=== PATIENT | female | born 1940 | race Caucasian/White ===

== ENCOUNTER 2017-06-23 17:44 | Inpatient (IN) | payer MEDICARE, MEDICAID ==
[~2017-06-23] VITALS: Ht 162.6 cm; Wt 54.5 kg
[2017-06-23] MEDS ORDERED: normal saline 1000ml 1,000 ML IV ONE (18:12)
[2017-06-23] MEDS ORDERED: normal saline 1000ML IV soln IVB ONE ×2 (18:15→19:20)
[2017-06-23 18:18] LABS: BASOPHILS % (AUTO) 0.5 % (0-1); EOSINOPHILS # (AUTO) 0.3 X10'3 (0-0.9); EOSINOPHILS % (AUTO) 2.6 % (0-6); HEMATOCRIT 33.1 % (35.0-45.0); HEMOGLOBIN 10.8 g/dl (12.0-16.0); LYMPHOCYTES # (AUTO) 2.1 X10'3 (1.1-4.8); LYMPHOCYTES % (AUTO) 21.8 % (21-51); MEAN CORPUSCULAR HEMOGLOBIN 29.9 PG (27.0-31.0); MEAN CORPUSCULAR HGB CONC 32.7 % (33.0-36.5); MEAN CORPUSCULAR VOLUME 91.7 FL (78-98); MEAN PLATELET VOLUME 7.9 FL (7.4-10.4); MONOCYTES # (AUTO) 0.6 X10'3 (0-0.9); MONOCYTES % (AUTO) 5.9 % (2-12); NEUTROPHILS # (AUTO) 6.7 X10'3 (1.8-7.7); NEUTROPHILS % (AUTO) 69.2 % (42-75); PLATELET COUNT 247 X10'3 (140-440); RED BLOOD COUNT 3.61 X10'6 (4.20-5.60); RED CELL DISTRIBUTION WIDTH 17.5 % (11.5-14.5); WHITE BLOOD COUNT 9.6 X10'3 (4.5-11.0)
[2017-06-23 18:30] LABS: PARTIAL THROMBOPLASTIN TIME 30 SECONDS (22-32); PROTHROMBIN TIME 10.6 SECONDS (9.0-12.0)
[2017-06-23 18:41] LABS: ALANINE AMINOTRANSFERASE 14 U/L (12-78); ALBUMIN 3.5 G/DL (3.4-5.0); ALBUMIN/GLOBULIN RATIO 0.9 (1.1-1.5); ALKALINE PHOSPHATASE 89 IU/L (46-116); ASPARTATE AMINO TRANSFERASE 18 U/L (10-37); BILIRUBIN,TOTAL 0.4 MG/DL (0.1-1.0); BLOOD UREA NITROGEN 37 MG/DL (7-18); BUN/CREATININE RATIO 23.3 (6.6-38.0); CALCIUM 7.9 MG/DL (8.5-10.1); CHLORIDE 103 MMOL/L (99-107); CREATINE KINASE 88 U/L (26-192); CREATININE 1.59 MG/DL (0.40-0.90); GLUCOSE 91 MG/DL (70-104); MAGNESIUM 2.1 MG/DL (1.5-2.4); POTASSIUM 5.3 MMOL/L (3.5-5.1); TOTAL CARBON DIOXIDE 25.2 MMOL/L (24-32); TOTAL PROTEIN 7.3 G/DL (6.4-8.2); eGFR 31 ML/MIN
[2017-06-23 18:42] LABS: ANION GAP 8 (8-16); SODIUM 136 MMOL/L (135-145)
[2017-06-23] MEDS ORDERED: HYDR-4070 PO (19:53)
[2017-06-23] MEDS ORDERED: AMLO10TA PO (19:53)
[2017-06-23] MEDS ORDERED: AMIO200T57 PO (19:53)
[2017-06-23] MEDS ORDERED: PANT-47 PO (19:53)
[2017-06-23] MEDS ORDERED: TIOT18CA3 PO (19:53)
[2017-06-23] MEDS ORDERED: ROSU20TA PO (19:53)
[2017-06-23] MEDS ORDERED: BUSP15TA14 PO (19:53)
[2017-06-23] MEDS ORDERED: NITR0.4T SL (19:53)
[2017-06-23] MEDS ORDERED: LEVO50TA PO (19:53)
[2017-06-23] MEDS ORDERED: ASPI81TA52 PO (19:53)
[2017-06-23] MEDS ORDERED: IMI20NS NS (19:53)
[2017-06-23] MEDS ORDERED: ALBU18HF2 INH (19:53)
[2017-06-23] MEDS ORDERED: CARB-87 PO (19:53)
[2017-06-23] MEDS ORDERED: FLUO20CA39 PO (19:53)
[2017-06-23] MEDS ORDERED: BUDE10.2 INH (19:53)
[2017-06-23] MEDS ORDERED: METO50TA17 PO (19:53)
[2017-06-23] MEDS ORDERED: ALBUTEROL SULFATE INH PRN (20:05)
[2017-06-23] MEDS ORDERED: ondansetron/PF 4mg/2ml inj IV PRN (20:05)
[2017-06-23] MEDS ORDERED: acetaminophen 325mg tablet PO PRN (20:05)
[2017-06-23] MEDS ORDERED: albuterol 2.5 MG/3 ML nebule NEB PRN (20:15)
[2017-06-23] MEDS: normal saline 1000ml 1,000 ML IV SCH (20:35)
[2017-06-23] MEDS ORDERED: HYDRALAZINE HCL PO SCH (21:00)
[2017-06-23] MEDS: ipratropium 0.5 MG/2.5ML nebule IH SCH ×2 (21:00→21:55)
[2017-06-23] MEDS: hydrALAZINE 25 MG tablet PO SCH (21:00)
[2017-06-23 22:05] LABS: PHOSPHORUS 4.4 MG/DL (2.3-4.5)
[2017-06-24 00:05] LABS: ALBUMIN 3.2 G/DL (3.4-5.0); ANION GAP 11 (8-16); BLOOD UREA NITROGEN 30 MG/DL (7-18); BUN/CREATININE RATIO 23.6 (6.6-38.0); CALCIUM 7.8 MG/DL (8.5-10.1); CHLORIDE 107 MMOL/L (99-107); CREATININE 1.27 MG/DL (0.40-0.90); GLUCOSE 88 MG/DL (70-104); POTASSIUM 4.4 MMOL/L (3.5-5.1); SODIUM 138 MMOL/L (135-145); TOTAL CARBON DIOXIDE 20.5 MMOL/L (24-32); eGFR 41 ML/MIN
[2017-06-24 01:14] LABS: COLOR,URINE YELLOW (Yellow); GLUCOSE, URINE NEGATIVE (Neg); KETONES,URINE NEGATIVE (Neg); LEUKOCYTE ESTERASE ,URINE MODERATE (Neg); NITRITES, URINE NEGATIVE (Neg); OCCULT BLOOD,URINE NEGATIVE (Neg); PROTEIN,URINE NEGATIVE (Neg); UROBILINOGEN,URINE 0.2 E.U/dL (0.2-1.0)
[2017-06-24 01:15] LABS: CLARITY,URINE SLIGHTLY CLOUDY (Clear); UA COLLECTION TYPE VOIDED
[2017-06-24 01:24] LABS: BACTERIA,URINE FEW /HPF (Neg); MUCUS STRANDS NONE SEEN /LPF (Neg); RBC,URINE NONE SEEN /HPF (0-2); SQUAMOUS EPITHELIAL CELL,UR FEW /LPF (FEW)
[2017-06-24 06:16] LABS: BASOPHILS # (AUTO) 0.1 X10'3 (0-0.2); BASOPHILS % (AUTO) 0.6 % (0-1); EOSINOPHILS # (AUTO) 0.3 X10'3 (0-0.9); EOSINOPHILS % (AUTO) 2.6 % (0-6); HEMATOCRIT 31.1 % (35.0-45.0); HEMOGLOBIN 10.3 g/dl (12.0-16.0); LYMPHOCYTES # (AUTO) 2.1 X10'3 (1.1-4.8); LYMPHOCYTES % (AUTO) 21.7 % (21-51); MEAN CORPUSCULAR HEMOGLOBIN 30.3 PG (27.0-31.0); MEAN CORPUSCULAR HGB CONC 33.1 % (33.0-36.5); MEAN CORPUSCULAR VOLUME 91.5 FL (78-98); MEAN PLATELET VOLUME 8.2 FL (7.4-10.4); MONOCYTES # (AUTO) 0.5 X10'3 (0-0.9); MONOCYTES % (AUTO) 4.9 % (2-12); NEUTROPHILS # (AUTO) 6.8 X10'3 (1.8-7.7); NEUTROPHILS % (AUTO) 70.2 % (42-75); PLATELET COUNT 210 X10'3 (140-440); RED CELL DISTRIBUTION WIDTH 16.8 % (11.5-14.5); WHITE BLOOD COUNT 9.8 X10'3 (4.5-11.0)
[2017-06-24 06:22] LABS: ANION GAP 8 (8-16); BLOOD UREA NITROGEN 25 MG/DL (7-18); BUN/CREATININE RATIO 22.1 (6.6-38.0); CALCIUM 8.3 MG/DL (8.5-10.1); CHLORIDE 110 MMOL/L (99-107); CHOL/HDL RATIO 2.2 (0.00-4.99); CHOLESTEROL 101 MG/DL (0-200); CREATININE 1.13 MG/DL (0.40-0.90); GLUCOSE 89 MG/DL (70-104); HDL CHOLESTEROL 46 MG/DL (35-60); LDL CHOLESTEROL 41 MG/DL (50-100); PHOSPHORUS 3.6 MG/DL (2.3-4.5); POTASSIUM 4.4 MMOL/L (3.5-5.1); SODIUM 142 MMOL/L (135-145); TOTAL CARBON DIOXIDE 24.2 MMOL/L (24-32); TRIGLYCERIDES 56 MG/DL (20-135); eGFR 47 ML/MIN
[2017-06-24] MEDS: levoTHYROXINE 25mcg tablet PO SCH (07:31)
[2017-06-24] MEDS ORDERED: [UNRECOGNIZED DRUG - OTHER] INH SCH (08:00)
[2017-06-24] MEDS ORDERED: non-formulary drug (Rosuvastatin Calcium* (Crestor*) 1 TAB) PO SCH (08:00)
[2017-06-24] MEDS ORDERED: non-formulary drug (Levothyroxine Sodium (Synthroid) 1 TAB) PO SCH (08:00)
[2017-06-24] MEDS ORDERED: BUDESONIDE INH SCH (08:00)
[2017-06-24] MEDS ORDERED: fluticasone/vilanterol 200mcg/25mcg inhaler IH SCH (08:00)
[2017-06-24] MEDS ORDERED: FORMOTEROL FUMARATE INH SCH (08:00)
[2017-06-24] MEDS ORDERED: non-formulary drug (Tiotropium Bromide (Spiriva) 1 CAP) PO SCH (08:00)
[2017-06-24] MEDS: ipratropium 0.5 MG/2.5ML nebule IH SCH ×3 (09:00→21:02)
[2017-06-24] MEDS: atorvastatin 20mg tablet PO SCH (09:01)
[2017-06-24] MEDS: FLUoxetine 20mg capsule PO SCH (09:02)
[2017-06-24] MEDS: aspirin 81mg tablet.DR PO SCH (09:02)
[2017-06-24] MEDS: pantoprazole 40mg Tablet.DR PO SCH (09:02)
[2017-06-24] MEDS: hydrALAZINE 25 MG tablet PO SCH ×3 (09:02→20:56)
[2017-06-24] MEDS ORDERED: GABA-530 PO (12:21)
[2017-06-24] MEDS: normal saline 1000ml 1,000 ML IV SCH (12:29)
[2017-06-24] MEDS: CefTRIAXone/D5W-Rocephin 1gm 50 ML IV SCH (15:56)
[2017-06-24 19:30] VITALS: BP 123/83
[2017-06-24 23:00] VITALS: BP 140/84
[2017-06-25 03:00] VITALS: BP 137/85
[2017-06-25] MEDS: ipratropium 0.5 MG/2.5ML nebule IH SCH (03:00)
[2017-06-25 04:37] LABS: ALBUMIN 3.1 G/DL (3.4-5.0); ANION GAP 9 (8-16); BLOOD UREA NITROGEN 19 MG/DL (7-18); CALCIUM 8.3 MG/DL (8.5-10.1); CHLORIDE 104 MMOL/L (99-107); CREATININE 1.19 MG/DL (0.40-0.90); GLUCOSE 95 MG/DL (70-104); MAGNESIUM 1.7 MG/DL (1.5-2.4); PHOSPHORUS 3.1 MG/DL (2.3-4.5); POTASSIUM 4.4 MMOL/L (3.5-5.1); SODIUM 137 MMOL/L (135-145); TOTAL CARBON DIOXIDE 24.2 MMOL/L (24-32); eGFR 44 ML/MIN
[2017-06-25 06:30] VITALS: BP 134/78
[2017-06-25] MEDS: levoTHYROXINE 25mcg tablet PO SCH (07:00)
[2017-06-25] MEDS: FLUoxetine 20mg capsule PO SCH (08:00)
[2017-06-25] MEDS: CefTRIAXone/D5W-Rocephin 1gm 50 ML IV SCH (08:00)
[2017-06-25] MEDS: normal saline 1000ml 1,000 ML IV SCH (09:35)
[2017-06-25] MEDS: atorvastatin 20mg tablet PO SCH (09:36)
[2017-06-25] MEDS: pantoprazole 40mg Tablet.DR PO SCH (09:36)
[2017-06-25] MEDS: hydrALAZINE 25 MG tablet PO SCH (09:36)
[2017-06-25] MEDS: aspirin 81mg tablet.DR PO SCH (09:36)
[2017-06-25 11:00] VITALS: BP 153/43
[2017-06-25] MEDS ORDERED: DOXY-200 PO (11:09)
[2017-06-25] MEDS ORDERED: lactobacillus rhamnosus 10,000 MMU CELLS/CAPSULE PO SCH (20:00)
== END 2017-06-25 12:45 | disposition home or self-care (01) | DRG 683 ==
LOC: ER 17:45 → ED HOLD 20:01 → PCU 3S 06-24 18:45
PROVIDERS: ADMIT Family Medicine; ATTEND Internal Medicine
DX: N17.9 Acute kidney failure, unspecified (principal); N39.0 Urinary tract infection, site not specified; E87.5 Hyperkalemia; I49.5 Sick sinus syndrome; I71.2 Thoracic aortic aneurysm, without rupture; E86.0 Dehydration; N18.3 Chronic kidney disease, stage 3 (moderate); E03.9 Hypothyroidism, unspecified; J44.9 Chronic obstructive pulmonary disease, unspecified; D64.9 Anemia, unspecified; I25.10 Atherosclerotic heart disease of native coronary artery without angina pectoris; I12.9 Hypertensive chronic kidney disease with stage 1 through stage 4 chronic kidney disease, or unspecified chronic kidney disease; E78.5 Hyperlipidemia, unspecified; F41.9 Anxiety disorder, unspecified; G89.29 Other chronic pain; K21.9 Gastro-esophageal reflux disease without esophagitis; K44.9 Diaphragmatic hernia without obstruction or gangrene; F17.210 Nicotine dependence, cigarettes, uncomplicated; Z90.49 Acquired absence of other specified parts of digestive tract; Z90.710 Acquired absence of both cervix and uterus; Z79.899 Other long term (current) drug therapy; Z88.6 Allergy status to analgesic agent; Z88.8 Allergy status to other drugs, medicaments and biological substances; Z85.118 Personal history of other malignant neoplasm of bronchus and lung; Z80.9 Family history of malignant neoplasm, unspecified; Z82.3 Family history of stroke; Z82.49 Family history of ischemic heart disease and other diseases of the circulatory system
CPT/HCPCS: 36415; 71045; 71046; 71250; 80048; 80053; 80061; 81001; 82550; 83735; 83874; 83880; 84100; 84443; 84484; 85025; 85610; 85730; 87070; 87088; 93005; 94640; 94760; 96360; 96361; 99291; J0696; J7030

== ENCOUNTER → 2017-06-29 | Emergency (ER) | payer MEDICARE, MEDICAID ==
[~2017-06-29] VITALS: Ht 162.6 cm; Wt 55.0 kg
[~2017-06-29] MED LIST: ALBU18HF2 INH; AMIO200T57 PO; AMLO10TA PO; ASPI81TA52 PO; BUDE10.2 INH; BUSP15TA14 PO; CARB-87 PO; DOXY-200 PO; FLUO20CA39 PO; GUAI5SYR5 CORPAK; HYDR-4070 PO; IMI20NS NS; LEVO50TA PO; NITR0.4T SL; PANT-47 PO; ROSU20TA PO; TIOT18CA3 PO; dexamethasone 4mg tablet PO ONE; ipratropium/albuterol 3ml nebule NEB ONE
[2017-06-29 19:50] VITALS: BP 115/81
== END | disposition home or self-care (01) ==
LOC: ER 19:39
DX: J45.901 Unspecified asthma with (acute) exacerbation (principal); I10 Essential (primary) hypertension; J44.9 Chronic obstructive pulmonary disease, unspecified; K21.9 Gastro-esophageal reflux disease without esophagitis; G89.29 Other chronic pain; Z90.49 Acquired absence of other specified parts of digestive tract; Z98.890 Other specified postprocedural states; Z60.2 Problems related to living alone; Z88.5 Allergy status to narcotic agent; Z88.8 Allergy status to other drugs, medicaments and biological substances; Z79.899 Other long term (current) drug therapy
CPT/HCPCS: 71046; 94640; 94760; 99284; J8540

== ENCOUNTER 2017-10-30 14:11 | Outpatient (CLI) | payer MEDICARE, MEDICAID ==
[~2017-10-30] VITALS: Ht 193 cm; Wt 55.3 kg
[~2017-10-30 14:11] MED LIST changes: +AMIO200T40 PO; -AMIO200T57 PO; -DOXY-200 PO; -GUAI5SYR5 CORPAK; -dexamethasone 4mg tablet PO ONE; -ipratropium/albuterol 3ml nebule NEB ONE
[2017-10-30] MEDS ORDERED: albuterol 2.5 MG/3 ML nebule NEB ONE (14:50)
== END 2017-10-30 23:59 | disposition home or self-care (01) ==
LOC: RT 14:11
PROVIDERS: ATTEND Internal Medicine Cardiovascular Disease
DX: J44.9 Chronic obstructive pulmonary disease, unspecified (principal); J90 Pleural effusion, not elsewhere classified; R06.09 Other forms of dyspnea; M41.34 Thoracogenic scoliosis, thoracic region; F17.200 Nicotine dependence, unspecified, uncomplicated; Z79.899 Other long term (current) drug therapy; Z79.82 Long term (current) use of aspirin
CPT/HCPCS: 71046; 85018; 94060; 94640; 94727; 94729; 94760

== ENCOUNTER 2018-08-29 19:19 | Emergency (ER) | payer MEDICARE, MEDICAID ==
[~2018-08-29] VITALS: Ht 162.6 cm; Wt 53.0 kg
[~2018-08-29 19:19] MED LIST changes: -ROSU20TA PO; +ROSU20TA2 PO
--- NOTE | 2018-08-29 20:09 | NUR ---
Bedside swallow evaluation performed at this time. Per daughters at bedside patient has been having difficulty swallowing x1 month that has worsened, patient even coughing at times while eating/drinking to the point of vomiting. Patient showed no signs of choking/coughing, but there is a delay in swallowing each time with applesauce, yogurt, and water. No signs of distress noted, safety measures in place.
--- NOTE | 2018-08-29 20:21 | NUR ---
Patient ambulated to bathroom at this time for urine sample. Patient gait unsteady, unbalanced, 1 person assistance needed. Patient unable to urinate at this time, returned safely to bed, daughters at bedside.
[2018-08-29 21:13] LABS: BASOPHILS # (AUTO) 0.1 X10'3 (0-0.2); BASOPHILS % (AUTO) 1.3 % (0-1); EOSINOPHILS # (AUTO) 0.1 X10'3 (0-0.9); EOSINOPHILS % (AUTO) 1.9 % (0-6); HEMATOCRIT 30.9 % (35.0-45.0); HEMOGLOBIN 10.2 g/dl (12.0-16.0); LYMPHOCYTES # (AUTO) 2.4 X10'3 (1.1-4.8); LYMPHOCYTES % (AUTO) 40.2 % (21-51); MEAN CORPUSCULAR HEMOGLOBIN 29.7 PG (27.0-31.0); MEAN CORPUSCULAR VOLUME 90.2 FL (78-98); MEAN PLATELET VOLUME 8.2 FL (7.4-10.4); MONOCYTES # (AUTO) 0.5 X10'3 (0-0.9); MONOCYTES % (AUTO) 8.8 % (2-12); NEUTROPHILS # (AUTO) 2.8 X10'3 (1.8-7.7); NEUTROPHILS % (AUTO) 47.8 % (42-75); PLATELET COUNT 173 X10'3 (140-440); RED BLOOD COUNT 3.43 X10'6 (4.20-5.60); WHITE BLOOD COUNT 5.9 X10'3 (4.5-11.0)
[2018-08-29 21:17] LABS: CLARITY,URINE CLEAR (Clear); COLOR,URINE YELLOW (Yellow); GLUCOSE, URINE NEGATIVE (Neg); KETONES,URINE NEGATIVE (Neg); LEUKOCYTE ESTERASE ,URINE NEGATIVE (Neg); NITRITES, URINE NEGATIVE (Neg); OCCULT BLOOD,URINE NEGATIVE (Neg); PROTEIN,URINE NEGATIVE (Neg); UROBILINOGEN,URINE 0.2 E.U/dL (0.2-1.0)
[2018-08-29 21:19] LABS: ALANINE AMINOTRANSFERASE 28 U/L (12-78); ALBUMIN 3.1 G/DL (3.4-5.0); ALBUMIN/GLOBULIN RATIO 0.9 (1.1-1.5); ALKALINE PHOSPHATASE 89 IU/L (46-116); ANION GAP 7 (8-16); ASPARTATE AMINO TRANSFERASE 50 U/L (10-37); BILIRUBIN,TOTAL 0.3 MG/DL (0.1-1.0); BLOOD UREA NITROGEN 20 MG/DL (7-18); CALCIUM 8.3 MG/DL (8.5-10.1); CHLORIDE 107 MMOL/L (99-107); CREATININE 1.43 MG/DL (0.40-0.90); GLUCOSE 92 MG/DL (70-104); SODIUM 139 MMOL/L (135-145); TOTAL CARBON DIOXIDE 25.5 MMOL/L (24-32); TOTAL PROTEIN 6.6 G/DL (6.4-8.2); eGFR 35 ML/MIN
[2018-08-29 21:25] LABS: UA COLLECTION TYPE STRAIGHT CATH
[2018-08-29] MEDS ORDERED: NYST1000 PO (21:49)
[2018-08-29 22:07] VITALS: BP 129/73
== END 2018-08-29 22:09 | disposition home or self-care (01) ==
LOC: ER 19:20
DX: R13.10 Dysphagia, unspecified (principal); R41.0 Disorientation, unspecified; I10 Essential (primary) hypertension; J44.9 Chronic obstructive pulmonary disease, unspecified; K21.9 Gastro-esophageal reflux disease without esophagitis; G89.29 Other chronic pain; F17.210 Nicotine dependence, cigarettes, uncomplicated; Z90.49 Acquired absence of other specified parts of digestive tract; Z98.890 Other specified postprocedural states; Z88.5 Allergy status to narcotic agent; Z88.8 Allergy status to other drugs, medicaments and biological substances; Z79.82 Long term (current) use of aspirin; Z79.899 Other long term (current) drug therapy; Z60.2 Problems related to living alone
CPT/HCPCS: 36415; 80053; 81003; 85025; 99283; P9612

== ENCOUNTER 2019-02-14 09:24 | Emergency (ER) | payer MEDICARE, MEDICAID ==
[~2019-02-14] VITALS: Ht 157.5 cm; Wt 54.0 kg
[~2019-02-14 09:24] MED LIST changes: -AMIO200T40 PO; +AMIO200T61 PO; -BUSP15TA14 PO; +BUSP15TA8 PO
[2019-02-14] MEDS ORDERED: ibuprofen tablet 400 MG TABLET PO ONE (10:55)
--- NOTE | 2019-02-14 11:00 | NUR ---
DR MENDOZA IN ROOM. ICE PACK IN PILLOW CASE PLACED TO LEFT KNEE WHICH IS BRUISED.
--- NOTE | 2019-02-14 11:15 | NUR ---
PRIMARY RN CAROLYN BACK FROM BREAK
[2019-02-14 12:46] VITALS: BP 130/75
== END 2019-02-14 12:51 | disposition home or self-care (01) ==
LOC: ER 09:24
DX: S80.02XA Contusion of left knee, initial encounter (principal); R41.0 Disorientation, unspecified; J44.9 Chronic obstructive pulmonary disease, unspecified; K21.9 Gastro-esophageal reflux disease without esophagitis; I12.9 Hypertensive chronic kidney disease with stage 1 through stage 4 chronic kidney disease, or unspecified chronic kidney disease; N18.9 Chronic kidney disease, unspecified; G89.29 Other chronic pain; F17.200 Nicotine dependence, unspecified, uncomplicated; Z85.118 Personal history of other malignant neoplasm of bronchus and lung; Z90.49 Acquired absence of other specified parts of digestive tract; Z98.890 Other specified postprocedural states; Z88.5 Allergy status to narcotic agent; Z88.8 Allergy status to other drugs, medicaments and biological substances; Z79.899 Other long term (current) drug therapy; Z79.82 Long term (current) use of aspirin; W06.XXXA Fall from bed, initial encounter; Y93.89 Activity, other specified; Y92.89 Other specified places as the place of occurrence of the external cause; Y99.9 Unspecified external cause status
CPT/HCPCS: 70450; 99284

== ENCOUNTER 2019-04-02 15:07 | Outpatient (CLI) | payer MEDICARE, MEDICAID | END 2019-04-02 23:59 | disposition home or self-care (01) | LOC: RAD 15:07 | PROVIDERS: ATTEND Psychiatry & Neurology Neurology | DX: R41.89 Other symptoms and signs involving cognitive functions and awareness (principal) | CPT/HCPCS: 95816 ==

== ENCOUNTER 2021-10-25 10:18 | Emergency (ER) | payer MEDICARE, MEDICAID ==
[~2021-10-25] VITALS: Ht 162.6 cm; Wt 52.7 kg
[~2021-10-25 10:18] MED LIST changes: +CARB-296 PO; -CARB-87 PO
[2021-10-25 10:22] VITALS: BP 132/72
[2021-10-25 11:21] LABS: BASOPHILS # (AUTO) 0.1 X10'3 (0-0.2); BASOPHILS % (AUTO) 0.9 % (0-1); EOSINOPHILS # (AUTO) 0.1 X10'3 (0-0.9); EOSINOPHILS % (AUTO) 2.1 % (0-6); LYMPHOCYTES # (AUTO) 1.4 X10'3 (1.1-4.8); LYMPHOCYTES % (AUTO) 20.5 % (21-51); MEAN CORPUSCULAR HEMOGLOBIN 29.9 PG (27.0-31.0); MEAN CORPUSCULAR HGB CONC 33.3 g/dL (33.0-36.5); MEAN CORPUSCULAR VOLUME 89.9 FL (78-98); MEAN PLATELET VOLUME 8.3 FL (7.4-10.4); MONOCYTES # (AUTO) 0.4 X10'3 (0-0.9); MONOCYTES % (AUTO) 6.3 % (2-12); NEUTROPHILS # (AUTO) 4.9 X10'3 (1.8-7.7); NEUTROPHILS % (AUTO) 70.2 % (42-75); PLATELET COUNT 221 X10'3 (140-440); RED BLOOD COUNT 3.34 X10'6 (4.20-5.60); RED CELL DISTRIBUTION WIDTH 16.1 % (11.5-14.5)
[2021-10-25 11:31] LABS: ALANINE AMINOTRANSFERASE 23 U/L (12-78); ALBUMIN 3.4 G/DL (3.4-5.0); ALBUMIN/GLOBULIN RATIO 0.9 (1.1-1.5); ALKALINE PHOSPHATASE 84 IU/L (46-116); ANION GAP 9 (8-16); ASPARTATE AMINO TRANSFERASE 31 U/L (10-37); BILIRUBIN,TOTAL 0.5 MG/DL (0.1-1.0); BLOOD UREA NITROGEN 25 MG/DL (7-18); CALCIUM 8.4 MG/DL (8.5-10.1); CHLORIDE 105 MMOL/L (99-107); CREATININE 1.25 MG/DL (0.40-0.90); GLUCOSE 101 MG/DL (70-104); POTASSIUM 4.3 MMOL/L (3.5-5.1); SODIUM 140 MMOL/L (135-145); TOTAL CARBON DIOXIDE 25.6 MMOL/L (24-32); eGFR 41 ML/MIN
[2021-10-25] MEDS ORDERED: HYDR25SU48 RC (15:57)
== END 2021-10-25 15:58 | disposition home or self-care (01) ==
LOC: ER 10:19
DX: J96.10 Chronic respiratory failure, unspecified whether with hypoxia or hypercapnia (principal); K64.9 Unspecified hemorrhoids; N18.9 Chronic kidney disease, unspecified; F31.9 Bipolar disorder, unspecified; J44.9 Chronic obstructive pulmonary disease, unspecified; I13.10 Hypertensive heart and chronic kidney disease without heart failure, with stage 1 through stage 4 chronic kidney disease, or unspecified chronic kidney disease; K21.9 Gastro-esophageal reflux disease without esophagitis; G89.29 Other chronic pain; E06.9 Thyroiditis, unspecified; Z88.5 Allergy status to narcotic agent; Z79.899 Other long term (current) drug therapy; Z88.8 Allergy status to other drugs, medicaments and biological substances; Z79.82 Long term (current) use of aspirin
CPT/HCPCS: 36415; 71045; 80053; 83880; 84484; 85025; 85610; 86885; 86900; 86901; 99284; 99285

== ENCOUNTER 2023-11-02 23:44 | Inpatient (IN) | payer MEDICARE, MEDICAID ==
[~2023-11-02] VITALS: Ht 162.6 cm; Wt 54.6 kg
[~2023-11-02 23:44] MED LIST changes: +AMIO100T4 PO; -AMIO200T61 PO; -BUDE10.2 INH; -BUSP15TA8 PO; +BUSP30TA3 PO; -CARB-296 PO; +CARB1TAB41 PO; +CHOL10008 PO; +CYAN500T71 PO; +FERR324T4 PO; +GABA-530 PO; +GLYC10.7 INH; +HYDR-3972 PO; -HYDR-4070 PO; -IMI20NS NS; -LEVO50TA PO; +LEVO75TA7 PO; +LOSA50TA64 PO; +PRIM50TA5 PO; +ROSU10TA2 PO; -ROSU20TA2 PO; -TIOT18CA3 PO; +VITC500T PO
[2023-11-03 00:04] LABS: BASOPHILS % (AUTO) 0.7 % (0-1); EOSINOPHILS # (AUTO) 0.2 X10'3 (0-0.9); EOSINOPHILS % (AUTO) 3.2 % (0-6); HEMATOCRIT 34.6 % (35.0-45.0); HEMOGLOBIN 11.1 g/dl (12.0-16.0); LYMPHOCYTES # (AUTO) 1.6 X10'3 (1.1-4.8); LYMPHOCYTES % (AUTO) 31.9 % (21-51); MEAN CORPUSCULAR HEMOGLOBIN 31.7 PG (27.0-31.0); MEAN CORPUSCULAR HGB CONC 32.2 g/dL (33.0-36.5); MEAN CORPUSCULAR VOLUME 98.7 FL (78-98); MEAN PLATELET VOLUME 8.3 FL (7.4-10.4); MONOCYTES # (AUTO) 0.4 X10'3 (0-0.9); MONOCYTES % (AUTO) 7.6 % (2-12); NEUTROPHILS # (AUTO) 2.8 X10'3 (1.8-7.7); NEUTROPHILS % (AUTO) 56.6 % (42-75); PLATELET COUNT 153 X10'3 (140-440); RED BLOOD COUNT 3.51 X10'6 (4.20-5.60); RED CELL DISTRIBUTION WIDTH 15.7 % (11.5-14.5)
[2023-11-03 00:23] LABS: ALBUMIN 3.4 G/DL (3.4-5.0); ANION GAP 6 (8-16); BLOOD UREA NITROGEN 25 MG/DL (7-18); BUN/CREATININE RATIO 15.9 (10.0-20.0); CALCIUM 8.3 MG/DL (8.5-10.1); CHLORIDE 103 MMOL/L (99-107); CREATININE 1.57 MG/DL (0.40-0.90); GLUCOSE 175 MG/DL (70-104); POTASSIUM 3.7 MMOL/L (3.5-5.1); PRO BRAIN NATRIURETIC PEPTIDE 895 PG/ML (0-450); SODIUM 137 MMOL/L (135-145); TOTAL CARBON DIOXIDE 28.4 MMOL/L (24-32); eCRCL 23 ML/MIN; eGFR 31 ML/MIN
[2023-11-03] MEDS: aspirin 81mg tab.chew PO ONE (01:00)
[2023-11-03] MEDS ORDERED: magnesium hydroxide 30ml (MOM) UD suspension PO PRN (02:40)
[2023-11-03] MEDS ORDERED: HYDROcodone/acetaminophen 5mg/325mg tablet PO PRN (02:40)
[2023-11-03] MEDS ORDERED: albuterol 2.5 MG/3 ML nebule NEB PRN ×2 (02:40→15:15)
[2023-11-03] MEDS ORDERED: bisacodyl 10mg suppository rectal RC PRN (02:40)
[2023-11-03] MEDS ORDERED: acetaminophen 325mg tablet PO PRN (02:40)
[2023-11-03] MEDS ORDERED: potassium Cl 40MEQ/1/2NS 520ml 520 ML IV PRN (02:40)
[2023-11-03] MEDS ORDERED: normal saline 1000ml 1,000 ML IV SCH (02:40)
[2023-11-03] MEDS ORDERED: potassium Cl 20 mEq SR tablet PO PRN ×2 (02:40)
[2023-11-03] MEDS ORDERED: magnesium sulf-water 4G/100mL 100 ML IV PRN (02:40)
[2023-11-03] MEDS ORDERED: ondansetron/PF 4mg/2ml inj IV PRN (02:40)
[2023-11-03] MEDS ORDERED: mag hydrox/Alum hydrox/simeth 30ml oral suspension PO PRN (02:40)
[2023-11-03] MEDS ORDERED: magnesium Cl slow-release 64mg tablet PO PRN (02:40)
[2023-11-03 03:03] LABS: APTT 30 SECONDS (22-32); INR 1.1 INR; PROTHROMBIN TIME 11.4 SECONDS (9.0-12.0)
[2023-11-03 03:36] VITALS: PULSE 62; RESP 12; O2SAT 97
[2023-11-03 03:42] LABS: MAGNESIUM 1.9 MG/DL (1.5-2.4)
[2023-11-03] MEDS ORDERED: MULT-1133 PO (03:42)
[2023-11-03 05:24] LABS: BILIRUBIN,URINE NEGATIVE (Neg); CLARITY,URINE CLEAR (Clear); COLOR,URINE YELLOW (Yellow); GLUCOSE, URINE NEGATIVE (Neg); KETONES,URINE NEGATIVE (Neg); LEUKOCYTE ESTERASE ,URINE NEGATIVE (Neg); NITRITES, URINE NEGATIVE (Neg); OCCULT BLOOD,URINE NEGATIVE (Neg); PH,URINE 5.5 (4.8-8.0); PROTEIN,URINE NEGATIVE (Neg); UROBILINOGEN,URINE 0.2 E.U/dL (0.2-1.0)
[2023-11-03 05:25] LABS: UA COLLECTION TYPE STRAIGHT CATH
[2023-11-03] MEDS: docusate sod 100mg capsule PO SCH (08:00)
[2023-11-03 19:12] VITALS: PULSE 72; RESP 16; O2SAT 97
[2023-11-03] MEDS: FLUoxetine 20mg capsule PO ONE (19:12)
[2023-11-03] MEDS: amLODIPine 5mg tablet PO ONE (19:13)
[2023-11-03] MEDS: pantoprazole 40mg Tablet.DR PO SCH (19:13)
[2023-11-03] MEDS: amiodarone 100mg tablet PO ONE (19:14)
[2023-11-03] MEDS: aspirin 81mg, enteric-coated 1 TAB TABLET.DR PO ONE (19:14)
[2023-11-03] MEDS: primidone 50mg tablet PO SCH (19:15)
[2023-11-03] MEDS: busPIRone 15mg tablet PO SCH (19:22)
[2023-11-03] MEDS: losartan 25mg tablet PO ONE (19:23)
[2023-11-03] MEDS: HYDROcodone/acetaminophen 10/325mg tab PO PRN (19:29)
[2023-11-03 20:04] VITALS: BP 170/112; PULSE 69; RESP 16; TEMP 98.2; O2SAT 92
[2023-11-03 20:30] VITALS: RESP 18; O2SAT 92
[2023-11-03 20:37] VITALS: BP_SYST 185; BP_SYST 191; BP_SYST 193; BP_DIAS 108; BP_DIAS 124; BP_DIAS 94; PULSE 69; PULSE 76; PULSE 85
[2023-11-03] MEDS: gabapentin 100mg capsule PO SCH (20:47)
[2023-11-03 23:04] VITALS: BP 168/96; PULSE 69; RESP 16; TEMP 98.5; O2SAT 93
[2023-11-04 03:10] VITALS: BP 154/95; PULSE 73; RESP 19; TEMP 98; O2SAT 92
[2023-11-04 07:00] VITALS: BP 179/99; PULSE 72; RESP 20; TEMP 98.5; O2SAT 96
[2023-11-04 07:27] LABS: HEMATOCRIT 35.3 % (35.0-45.0); HEMOGLOBIN 11.7 g/dl (12.0-16.0); LYMPHOCYTES # (AUTO) 1.9 X10'3 (1.1-4.8); MEAN CORPUSCULAR HGB CONC 33.2 g/dL (33.0-36.5); MONOCYTES # (AUTO) 0.4 X10'3 (0-0.9); NEUTROPHILS # (AUTO) 2.4 X10'3 (1.8-7.7)
[2023-11-04 07:30] LABS: EOSINOPHILS # (AUTO) 0.2 X10'3 (0-0.9); EOSINOPHILS % (AUTO) 3.5 % (0-6); MEAN CORPUSCULAR HEMOGLOBIN 32.6 PG (27.0-31.0); MEAN CORPUSCULAR VOLUME 98.3 FL (78-98); MEAN PLATELET VOLUME 9.7 FL (7.4-10.4); MONOCYTES % (AUTO) 8.9 % (2-12); NEUTROPHILS % (AUTO) 48.6 % (42-75); RED BLOOD COUNT 3.59 X10'6 (4.20-5.60); RED CELL DISTRIBUTION WIDTH 15.4 % (11.5-14.5)
[2023-11-04 07:42] LABS: ALANINE AMINOTRANSFERASE 18 U/L (12-78); ALBUMIN 3.3 G/DL (3.4-5.0); ALKALINE PHOSPHATASE 66 IU/L (46-116); ANION GAP 6 (8-16); ASPARTATE AMINO TRANSFERASE 21 U/L (10-37); BILIRUBIN,TOTAL 0.4 MG/DL (0.1-1.0); BLOOD UREA NITROGEN 21 MG/DL (7-18); BUN/CREATININE RATIO 20.6 (10.0-20.0); CALCIUM 8.6 MG/DL (8.5-10.1); CHLORIDE 103 MMOL/L (99-107); CREATININE 1.02 MG/DL (0.40-0.90); GLUCOSE 88 MG/DL (70-104); MAGNESIUM 1.9 MG/DL (1.5-2.4); POTASSIUM 3.9 MMOL/L (3.5-5.1); SODIUM 137 MMOL/L (135-145); TOTAL CARBON DIOXIDE 27.9 MMOL/L (24-32); TOTAL PROTEIN 6.7 G/DL (6.4-8.2); eCRCL 35 ML/MIN; eGFR 52 ML/MIN
[2023-11-04 08:00] VITALS: BP_SYST 165; BP_SYST 167; BP_SYST 179; BP_DIAS 103; BP_DIAS 106; BP_DIAS 99; PULSE 62; PULSE 71; PULSE 74; RESP 16; O2SAT 94
[2023-11-04] MEDS ORDERED: Glycopyrrolate/Formoterol Fum (Bevespi Aerosphere Inhaler) IH SCH (08:00)
[2023-11-04] MEDS: aspirin 81mg, enteric-coated 1 TAB TABLET.DR PO SCH (08:18)
[2023-11-04] MEDS: levoTHYROXINE 75mcg tablet PO SCH (08:18)
[2023-11-04] MEDS: amiodarone 100mg tablet PO SCH (08:19)
[2023-11-04] MEDS: FLUoxetine 20mg capsule PO SCH (08:19)
[2023-11-04 08:20] VITALS: BP_SYST 179; PULSE 72
[2023-11-04] MEDS: amLODIPine 5mg tablet PO SCH (08:20)
[2023-11-04] MEDS: losartan 25mg tablet PO SCH (08:20)
[2023-11-04] MEDS: ROSUVASTATIN CALCIUM 5 MG TABLET PO SCH (08:21)
[2023-11-04 08:30] LABS: PLATELET COUNT 143 X10'3 (140-440)
[2023-11-04] MEDS ORDERED: PANT-47 PO (11:07)
[2023-11-04] MEDS ORDERED: FLUO20CA39 PO (11:09)
== END 2023-11-04 12:16 | disposition home health service (06) | DRG 149 ==
LOC: ER 23:45 → ED HOLD 11-03 02:41 → PCU 3S 11-03 19:59
PROVIDERS: ADMIT Internal Medicine Critical Care Medicine; ATTEND Internal Medicine
DX: H81.10 Benign paroxysmal vertigo, unspecified ear (principal); I13.0 Hypertensive heart and chronic kidney disease with heart failure and stage 1 through stage 4 chronic kidney disease, or unspecified chronic kidney disease; I48.20 Chronic atrial fibrillation, unspecified; J96.10 Chronic respiratory failure, unspecified whether with hypoxia or hypercapnia; I50.22 Chronic systolic (congestive) heart failure; I25.110 Atherosclerotic heart disease of native coronary artery with unstable angina pectoris; M47.812 Spondylosis without myelopathy or radiculopathy, cervical region; I95.1 Orthostatic hypotension; N18.30 Chronic kidney disease, stage 3 unspecified; G89.4 Chronic pain syndrome; J44.9 Chronic obstructive pulmonary disease, unspecified; E03.9 Hypothyroidism, unspecified; G20.A1 Parkinson's disease without dyskinesia, without mention of fluctuations; K21.9 Gastro-esophageal reflux disease without esophagitis; F41.9 Anxiety disorder, unspecified; Z79.899 Other long term (current) drug therapy; Z82.3 Family history of stroke; Z85.118 Personal history of other malignant neoplasm of bronchus and lung; Z86.73 Personal history of transient ischemic attack (TIA), and cerebral infarction without residual deficits; Z88.5 Allergy status to narcotic agent; Z88.8 Allergy status to other drugs, medicaments and biological substances
CPT/HCPCS: 36415; 70551; 71045; 80048; 80053; 81003; 83735; 83880; 84132; 84484; 85025; 85610; 85730; 87081; 93005; 93880; 94760; 97116; 97162; 99285; G0378

== ENCOUNTER 2023-12-17 17:04 | Emergency (ER) | payer MEDICARE, MEDICAID ==
[~2023-12-17] VITALS: Ht 162.6 cm; Wt 52.3 kg
[~2023-12-17 17:04] MED LIST changes: -CARB1TAB41 PO; -HYDR-3972 PO; +MULT-1133 PO
[2023-12-17 18:18] LABS: EOSINOPHILS # (AUTO) 0.1 X10'3 (0-0.9); EOSINOPHILS % (AUTO) 2.7 % (0-6); HEMATOCRIT 37.4 % (35.0-45.0); HEMOGLOBIN 12.2 g/dl (12.0-16.0); LYMPHOCYTES # (AUTO) 1.5 X10'3 (1.1-4.8); LYMPHOCYTES % (AUTO) 29.8 % (21-51); MEAN CORPUSCULAR HEMOGLOBIN 32.3 PG (27.0-31.0); MEAN CORPUSCULAR HGB CONC 32.7 g/dL (33.0-36.5); MEAN CORPUSCULAR VOLUME 98.8 FL (78-98); MEAN PLATELET VOLUME 9.1 FL (7.4-10.4); MONOCYTES # (AUTO) 0.4 X10'3 (0-0.9); NEUTROPHILS % (AUTO) 59.5 % (42-75); PLATELET COUNT 174 X10'3 (140-440); RED BLOOD COUNT 3.78 X10'6 (4.20-5.60)
[2023-12-17 18:34] LABS: ALANINE AMINOTRANSFERASE 23 U/L (12-78); ALBUMIN 3.3 G/DL (3.4-5.0); ALKALINE PHOSPHATASE 76 IU/L (46-116); ANION GAP 9 (8-16); ASPARTATE AMINO TRANSFERASE 25 U/L (10-37); BILIRUBIN,TOTAL 0.3 MG/DL (0.1-1.0); BLOOD UREA NITROGEN 26 MG/DL (7-18); BUN/CREATININE RATIO 21.5 (10.0-20.0); CALCIUM 8.5 MG/DL (8.5-10.1); CHLORIDE 105 MMOL/L (99-107); CREATININE 1.21 MG/DL (0.40-0.90); GLUCOSE 95 MG/DL (70-104); POTASSIUM 4.9 MMOL/L (3.5-5.1); SODIUM 140 MMOL/L (135-145); TOTAL CARBON DIOXIDE 25.9 MMOL/L (24-32); TOTAL PROTEIN 6.6 G/DL (6.4-8.2); eCRCL 28 ML/MIN; eGFR 42 ML/MIN
[2023-12-17 18:41] LABS: PRO BRAIN NATRIURETIC PEPTIDE 1239 PG/ML (0-450)
[2023-12-17 22:02] VITALS: BP 117/86; PULSE 105; RESP 18; TEMP 97.8; O2SAT 96
== END 2023-12-17 22:37 | disposition home or self-care (01) ==
LOC: ER 17:05
DX: R61 Generalized hyperhidrosis (principal); R06.02 Shortness of breath; R00.2 Palpitations; I48.91 Unspecified atrial fibrillation; I13.0 Hypertensive heart and chronic kidney disease with heart failure and stage 1 through stage 4 chronic kidney disease, or unspecified chronic kidney disease; I50.9 Heart failure, unspecified; N18.9 Chronic kidney disease, unspecified; J44.9 Chronic obstructive pulmonary disease, unspecified; K21.9 Gastro-esophageal reflux disease without esophagitis; F32.A Depression, unspecified; Z88.5 Allergy status to narcotic agent; Z88.8 Allergy status to other drugs, medicaments and biological substances; Z79.899 Other long term (current) drug therapy; Z79.82 Long term (current) use of aspirin; Z90.49 Acquired absence of other specified parts of digestive tract
CPT/HCPCS: 36415; 71045; 80053; 83880; 84484; 85025; 93005; 99285

== ENCOUNTER 2024-02-20 10:50 | Day surgery (SDC) | payer MEDICARE, MEDICAID ==
[~2024-02-20] VITALS: Ht 162.6 cm; Wt 51.8 kg
[2024-02-20] MEDS ORDERED: propofol 10mg/ml 20ml vial IV ONE (11:10)
[2024-02-20 11:15] VITALS: BP 150/86; PULSE 67; RESP 12
[2024-02-20] MEDS ORDERED: fentaNYL/PF 50MCG/1 ML 2ML syringe ONE (11:37)
[2024-02-20] MEDS ORDERED: midazolam 1 mg/ML 2ml injection ONE (11:37)
[2024-02-20 11:55] VITALS: BP 126/80; PULSE 65; RESP 16; O2SAT 97
[2024-02-20 12:05] VITALS: BP 150/88; PULSE 64; RESP 16; O2SAT 97
[2024-02-20 12:15] VITALS: BP 149/90; PULSE 67; RESP 15; O2SAT 97
[2024-02-20 12:25] VITALS: BP 169/91; PULSE 66; RESP 14; O2SAT 95
[2024-02-20] MEDS ORDERED: CARB1TAB44 PO (13:59)
[2024-02-20] MEDS ORDERED: HYDR-3972 PO (13:59)
[2024-02-20] MEDS ORDERED: VERA120C2 PO (13:59)
== END 2024-02-20 12:30 | disposition home or self-care (01) ==
LOC: OR 10:50
PROVIDERS: ATTEND Internal Medicine Gastroenterology
DX: R13.10 Dysphagia, unspecified (principal); K57.30 Diverticulosis of large intestine without perforation or abscess without bleeding; K29.70 Gastritis, unspecified, without bleeding; K31.89 Other diseases of stomach and duodenum; I11.0 Hypertensive heart disease with heart failure; I50.9 Heart failure, unspecified; I25.10 Atherosclerotic heart disease of native coronary artery without angina pectoris; J44.89 Other specified chronic obstructive pulmonary disease; F32.A Depression, unspecified; Z79.899 Other long term (current) drug therapy
CPT/HCPCS: 43239; J2250; J2704; J3010; J7030; Z7512; 88305

== ENCOUNTER 2024-04-10 00:58 | Emergency (ER) | payer MEDICARE, MEDICAID ==
[~2024-04-10] VITALS: Ht 162.6 cm; Wt 52.4 kg
[~2024-04-10 00:58] MED LIST changes: +CARB1TAB44 PO; +HYDR-3972 PO; +VERA120C2 PO; -VITC500T PO
[2024-04-10 01:04] VITALS: BP 125/84; PULSE 125; O2SAT 95
[2024-04-10 01:29] VITALS: RESP 16
[2024-04-10 01:49] LABS: BASOPHILS # (AUTO) 0.1 X10'3 (0-0.2); BASOPHILS % (AUTO) 0.9 % (0-1); EOSINOPHILS # (AUTO) 0.1 X10'3 (0-0.9); EOSINOPHILS % (AUTO) 1.7 % (0-6); HEMATOCRIT 34.6 % (35.0-45.0); HEMOGLOBIN 11.7 g/dl (12.0-16.0); LYMPHOCYTES # (AUTO) 1.5 X10'3 (1.1-4.8); LYMPHOCYTES % (AUTO) 18.5 % (21-51); MEAN CORPUSCULAR HGB CONC 33.8 g/dL (33.0-36.5); MEAN CORPUSCULAR VOLUME 97.7 FL (78-98); MEAN PLATELET VOLUME 8.3 FL (7.4-10.4); MONOCYTES # (AUTO) 0.5 X10'3 (0-0.9); MONOCYTES % (AUTO) 6.1 % (2-12); NEUTROPHILS % (AUTO) 72.8 % (42-75); PLATELET COUNT 189 X10'3 (140-440); RED BLOOD COUNT 3.54 X10'6 (4.20-5.60); RED CELL DISTRIBUTION WIDTH 14.8 % (11.5-14.5); WHITE BLOOD COUNT 8.3 X10'3 (4.5-11.0)
[2024-04-10 01:57] LABS: ALANINE AMINOTRANSFERASE 28 U/L (12-78); ALBUMIN 3.6 G/DL (3.4-5.0); ALKALINE PHOSPHATASE 85 IU/L (46-116); ANION GAP 8 (8-16); ASPARTATE AMINO TRANSFERASE 23 U/L (10-37); BILIRUBIN,TOTAL 0.4 MG/DL (0.1-1.0); BLOOD UREA NITROGEN 23 MG/DL (7-18); BUN/CREATININE RATIO 17.4 (10.0-20.0); CALCIUM 8.5 MG/DL (8.5-10.1); CHLORIDE 102 MMOL/L (99-107); CREATININE 1.32 MG/DL (0.40-0.90); GLUCOSE 102 MG/DL (70-104); POTASSIUM 4.4 MMOL/L (3.5-5.1); SODIUM 136 MMOL/L (135-145); TOTAL CARBON DIOXIDE 26.1 MMOL/L (24-32); TOTAL PROTEIN 7.1 G/DL (6.4-8.2); eCRCL 26 ML/MIN; eGFR 38 ML/MIN
[2024-04-10 02:05] LABS: PRO BRAIN NATRIURETIC PEPTIDE 831 PG/ML (0-450)
[2024-04-10 03:53] LABS: BILIRUBIN,URINE NEGATIVE (Neg); CLARITY,URINE CLEAR (Clear); COLOR,URINE Yellow (Yellow); GLUCOSE, URINE NEGATIVE (Neg); KETONES,URINE NEGATIVE (Neg); LEUKOCYTE ESTERASE ,URINE NEGATIVE (Neg); NITRITES, URINE NEGATIVE (Neg); OCCULT BLOOD,URINE NEGATIVE (Neg); PROTEIN,URINE NEGATIVE (Neg); UA COLLECTION TYPE NON-SPECIFIED; UROBILINOGEN,URINE 0.2 E.U/dL (0.2-1.0)
[2024-04-10 04:32] VITALS: TEMP 98
== END 2024-04-10 04:37 | disposition home or self-care (01) ==
LOC: ER 00:58
DX: I48.0 Paroxysmal atrial fibrillation (principal); J44.9 Chronic obstructive pulmonary disease, unspecified; I13.0 Hypertensive heart and chronic kidney disease with heart failure and stage 1 through stage 4 chronic kidney disease, or unspecified chronic kidney disease; I50.9 Heart failure, unspecified; N18.9 Chronic kidney disease, unspecified; I25.2 Old myocardial infarction; F41.9 Anxiety disorder, unspecified; F32.A Depression, unspecified; K21.9 Gastro-esophageal reflux disease without esophagitis; E07.9 Disorder of thyroid, unspecified; Z60.2 Problems related to living alone; Z90.49 Acquired absence of other specified parts of digestive tract; Z95.0 Presence of cardiac pacemaker; Z85.118 Personal history of other malignant neoplasm of bronchus and lung; Z87.19 Personal history of other diseases of the digestive system; Z88.5 Allergy status to narcotic agent; Z88.8 Allergy status to other drugs, medicaments and biological substances; Z79.899 Other long term (current) drug therapy
CPT/HCPCS: 36415; 71045; 80053; 81003; 83880; 84484; 85025; 93005; 99285

== ENCOUNTER 2024-06-12 00:24 | Emergency (ER) | payer MEDICARE, MEDICAID ==
[~2024-06-12] VITALS: Ht 162.6 cm; Wt 53.2 kg
[2024-06-12 00:29] VITALS: TEMP 97.1
[2024-06-12 02:24] LABS: BASOPHILS # (AUTO) 0.1 X10'3 (0-0.2); BASOPHILS % (AUTO) 0.7 % (0-1); EOSINOPHILS # (AUTO) 0.1 X10'3 (0-0.9); EOSINOPHILS % (AUTO) 1.7 % (0-6); HEMATOCRIT 36.1 % (35.0-45.0); HEMOGLOBIN 11.9 g/dl (12.0-16.0); LYMPHOCYTES # (AUTO) 1.8 X10'3 (1.1-4.8); LYMPHOCYTES % (AUTO) 24.7 % (21-51); MEAN CORPUSCULAR HEMOGLOBIN 32.5 PG (27.0-31.0); MEAN CORPUSCULAR HGB CONC 32.8 g/dL (33.0-36.5); MEAN CORPUSCULAR VOLUME 98.9 FL (78-98); MEAN PLATELET VOLUME 9.2 FL (7.4-10.4); MONOCYTES # (AUTO) 0.4 X10'3 (0-0.9); NEUTROPHILS # (AUTO) 4.9 X10'3 (1.8-7.7); NEUTROPHILS % (AUTO) 66.9 % (42-75); PLATELET COUNT 187 X10'3 (140-440); RED BLOOD COUNT 3.65 X10'6 (4.20-5.60); RED CELL DISTRIBUTION WIDTH 14.9 % (11.5-14.5); WHITE BLOOD COUNT 7.4 X10'3 (4.5-11.0)
[2024-06-12 02:30] LABS: ALANINE AMINOTRANSFERASE 35 U/L (12-78); ALBUMIN 3.8 G/DL (3.4-5.0); ALBUMIN/GLOBULIN RATIO 0.9 (1.1-1.5); ALKALINE PHOSPHATASE 104 IU/L (46-116); ANION GAP 7 (8-16); ASPARTATE AMINO TRANSFERASE 32 U/L (10-37); BILIRUBIN,TOTAL 0.2 MG/DL (0.1-1.0); BLOOD UREA NITROGEN 32 MG/DL (7-18); BUN/CREATININE RATIO 24.4 (10.0-20.0); CALCIUM 8.5 MG/DL (8.5-10.1); CHLORIDE 103 MMOL/L (99-107); CREATININE 1.31 MG/DL (0.40-0.90); GLUCOSE 130 MG/DL (70-104); POTASSIUM 4.7 MMOL/L (3.5-5.1); SODIUM 140 MMOL/L (135-145); TOTAL CARBON DIOXIDE 29.6 MMOL/L (24-32); eCRCL 26 ML/MIN; eGFR 39 ML/MIN
[2024-06-12 02:37] LABS: PRO BRAIN NATRIURETIC PEPTIDE 1198 PG/ML (0-450)
[2024-06-12 05:13] LABS: THYROID STIMULATING HORMONE 48.37 ulU/ml (0.34-4.50)
[2024-06-12 05:43] VITALS: BP 142/69; PULSE 70; RESP 15; O2SAT 96
== END 2024-06-12 05:54 | disposition home or self-care (01) ==
LOC: ER 00:25
DX: I48.91 Unspecified atrial fibrillation (principal); I13.0 Hypertensive heart and chronic kidney disease with heart failure and stage 1 through stage 4 chronic kidney disease, or unspecified chronic kidney disease; I50.9 Heart failure, unspecified; J44.9 Chronic obstructive pulmonary disease, unspecified; N18.9 Chronic kidney disease, unspecified; Z85.118 Personal history of other malignant neoplasm of bronchus and lung; Z88.5 Allergy status to narcotic agent; Z88.8 Allergy status to other drugs, medicaments and biological substances; Z90.49 Acquired absence of other specified parts of digestive tract
CPT/HCPCS: 36415; 71045; 80053; 83880; 84443; 84484; 85025; 93005; 99285